=== PATIENT | male | born 1940 | race Caucasian/White ===

== ENCOUNTER → 2017-01-07 | Outpatient (CLI) | payer OTHER, MEDICARE | LOC: CIMAGING 15:58 | PROVIDERS: ATTEND Internal Medicine | DX: R05 Cough (principal) | CPT/HCPCS: 71020-PO ==

== ENCOUNTER → 2018-01-13 | Outpatient (CLI) | payer OTHER, MEDICARE | LOC: CIMAGING 11:16 | DX: M19.022 Primary osteoarthritis, left elbow (principal); M77.02 Medial epicondylitis, left elbow; M77.12 Lateral epicondylitis, left elbow; M25.422 Effusion, left elbow | CPT/HCPCS: 73080-PO; 82607-90 ==